=== PATIENT | male | born 1950 | race Caucasian/White ===

== ENCOUNTER → 2020-11-26 12:25 | Outpatient (CLI) | payer MEDICARE, SELFPAY ==
[2020-11-26] MEDS: COVID-19 VACC, Ad26(JANSSEN)/PF 0.5 ML IM (12:32)
== END ==
PROVIDERS: PCP Family Medicine; Visit Provider Internal Medicine
DX: Z23 Encounter for immunization (principal)
CPT/HCPCS: 0031A; 91303

== ENCOUNTER → 2021-03-24 09:22 | Outpatient (CLI) | payer MEDICARE, SELFPAY ==
[2021-03-24 20:01] LABS: Hematocrit 46.1 % (41-53); Hemoglobin 15.1 g/dL (13.5-17.5); Mean Corpuscular HGB Conc 32.7 % (30-36); Mean Corpuscular Hemoglobin 30.8 PG (26-34); Mean Corpuscular Volume 94.3 fL (80-100); Platelet Count 207 X10^3/uL (150-400); Red Blood Cell Count 4.89 X10^6/uL (4.5-5.9); Red Cell Distribution Width 14.2 % (11.6-14.8); White Blood Cell Count 5.9 X10^3/uL (4.5-11.0)
[2021-03-24 20:16] LABS: Alanine Aminotransferase 27 IU/L (<50); Albumin 4.9 g/dL (3.5-5.0); Albumin Globulin Ratio 1.4 (1.0-2.8); Alkaline Phosphatase 67 U/L (38-126); Aspartate Aminotransferase 56 IU/L (17-59); BUN Creatinine Ratio 11.2 (6-22); Bilirubin Total 0.6 mg/dL (0.2-1.3); Blood Urea Nitrogen 10 mg/dL (9-20); Calcium 9.9 mg/dL (8.4-10.2); Carbon Dioxide 29 mmol/L (22-32); Chloride 103 mmol/L (98-107); Cholesterol 239 mg/dL (140-199); Creatine Kinase 219 U/L (55-170); Estimated Glomerular Filt Rate > 60.0 mL/min (>60); Globulin 3.5 g/dL (1.7-4.1); Glucose 93 mg/dL (80-110); HDL Cholesterol 85 mg/dL (40-60); HEMOLYSIS 21 (0-50); LDL Cholesterol Calculated 132 mg/dL (<100); Sodium 143 mmol/L (137-145); Total Protein 8.4 g/dL (6.3-8.2); Triglycerides 111 mg/dL (35-150)
[2021-03-24 20:44] LABS: Thyroid Stimulating Hormone 4.33 uIU/mL (0.47-4.68)
== END ==
PROVIDERS: PCP Family Medicine
DX: E78.5 Hyperlipidemia, unspecified (principal); I10 Essential (primary) hypertension; I48.20 Chronic atrial fibrillation, unspecified
CPT/HCPCS: 80053; 80061; 82550; 84443; 85027

== ENCOUNTER → 2021-08-02 12:36 | Outpatient (CLI) | payer MEDICARE, SELFPAY ==
[2021-08-02 18:34] LABS: Add Manual Diff / Slide Review NO; Basophils Absolute Auto 0 /uL (0-100); Basophils Percent Auto 0.6 % (0-2); Eosinophils Absolute Auto 100 /uL (0-450); Eosinophils Percent Auto 1.2 % (2-4); Hematocrit 41.4 % (41-53); Lymphocytes Absolute Auto 1700 /uL (1100-4500); Lymphocytes Percent Auto 23.6 % (25-40); Mean Corpuscular HGB Conc 33.8 % (30-36); Mean Corpuscular Hemoglobin 31.5 PG (26-34); Mean Corpuscular Volume 93.4 fL (80-100); Monocytes Absolute Auto 700 /uL (0-900); Monocytes Percent Auto 9.2 % (3-14); Neutrophils Absolute Auto 4700 /uL (1500-7000); Neutrophils Percent Auto 65.4 % (50-75); Platelet Count 211 X10^3/uL (150-400); Red Blood Cell Count 4.43 X10^6/uL (4.5-5.9); White Blood Cell Count 7.2 X10^3/uL (4.5-11.0)
[2021-08-02 18:51] LABS: Albumin 4.6 g/dL (3.5-5.0); Creatine Kinase 123 U/L (55-170)
[2021-08-02 19:23] LABS: TSH w/ Reflex to FT4 2.96 uIU/mL (0.47-4.68)
[2021-08-03 03:02] LABS: Alanine Aminotransferase 23 IU/L (<50); Albumin 4.7 g/dL (3.5-5.0); Albumin Globulin Ratio 1.3 (1.0-2.8); Alkaline Phosphatase 60 U/L (38-126); Aspartate Aminotransferase 41 IU/L (17-59); BUN Creatinine Ratio 14.4 (6-22); Bilirubin Total 0.6 mg/dL (0.2-1.3); Blood Urea Nitrogen 14 mg/dL (9-20); Calcium 9.9 mg/dL (8.4-10.2); Carbon Dioxide 28 mmol/L (22-32); Chloride 104 mmol/L (98-107); Estimated Glomerular Filt Rate > 60.0 mL/min (>60); Globulin 3.6 g/dL (1.7-4.1); Glucose 116 mg/dL (80-110); HEMOLYSIS < 15 (0-50); Potassium 4.4 mmol/L (3.4-5.1); Sodium 142 mmol/L (137-145); Total Protein 8.3 g/dL (6.3-8.2)
[2021-08-03 03:32] LABS: Prostate Specific Antigen Scrn 4.07 ng/mL (0.1-4.0)
== END ==
PROVIDERS: PCP Family Medicine; Visit Provider Physician Assistant
DX: Z79.899 Other long term (current) drug therapy (principal); Z12.5 Encounter for screening for malignant neoplasm of prostate; I48.91 Unspecified atrial fibrillation; L29.9 Pruritus, unspecified; R74.8 Abnormal levels of other serum enzymes
CPT/HCPCS: 80053; 82040; 82550; 84443; 85025; G0103

== ENCOUNTER → 2023-07-30 08:54 | Outpatient (CLI) | payer MEDICARE, SELFPAY ==
[2023-07-30 09:48] LABS: Add Manual Diff / Slide Review NO; Basophils Absolute Auto 100 /uL (0-100); Basophils Percent Auto 0.6 % (0-2); Eosinophils Absolute Auto 100 /uL (0-450); Eosinophils Percent Auto 1.7 % (2-4); Hematocrit 40.6 % (41-53); Hemoglobin 13.8 g/dL (13.5-17.5); Lymphocytes Absolute Auto 2600 /uL (1100-4500); Mean Corpuscular HGB Conc 33.9 % (30-36); Mean Corpuscular Hemoglobin 30.1 PG (26-34); Mean Corpuscular Volume 88.6 fL (80-100); Monocytes Absolute Auto 700 /uL (0-900); Monocytes Percent Auto 8.4 % (3-14); Neutrophils Absolute Auto 5000 /uL (1500-7000); Neutrophils Percent Auto 59.3 % (50-75); Platelet Count 201 X10^3/uL (150-400); Red Blood Cell Count 4.58 X10^6/uL (4.5-5.9); Red Cell Distribution Width 13.8 % (11.6-14.8); White Blood Cell Count 8.5 X10^3/uL (4.5-11.0)
[2023-07-30 10:43] LABS: Alanine Aminotransferase 24 IU/L (<50); Albumin 4.5 g/dL (3.5-5.0); Albumin Globulin Ratio 1.3 (1.0-2.8); Alkaline Phosphatase 71 U/L (38-126); Aspartate Aminotransferase 38 IU/L (17-59); Bilirubin Total 0.7 mg/dL (0.2-1.3); Blood Urea Nitrogen 12 mg/dL (9-20); Calcium 9.8 mg/dL (8.4-10.2); Carbon Dioxide 25 mmol/L (22-32); Chloride 105 mmol/L (98-107); Cholesterol 161 mg/dL (140-199); Estimated Glomerular Filt Rate > 60 mL/min (>60); Globulin 3.4 g/dL (1.7-4.1); Glucose 109 mg/dL (80-110); HDL Cholesterol 54 mg/dL (40-60); HEMOLYSIS < 15 (0-50); LDL Cholesterol Calculated 88 mg/dL (<100); Potassium 4.4 mmol/L (3.4-5.1); Sodium 142 mmol/L (137-145); Total Protein 7.9 g/dL (6.3-8.2); Triglycerides 93 mg/dL (35-150)
[2023-07-30 15:46] LABS: Hep C Virus Ab w/Reflex Quant NEGATIVE s/c (NEGATIVE)
== END ==
LOC: LAB 08:56
PROVIDERS: PCP Family Medicine; Referring Provider Family Medicine; Visit Provider Family Medicine
DX: Z00.00 Encounter for general adult medical examination without abnormal findings (principal); I48.91 Unspecified atrial fibrillation; E78.00 Pure hypercholesterolemia, unspecified; Z11.59 Encounter for screening for other viral diseases
CPT/HCPCS: 36415; 80053; 80061; 85025; 86803

== ENCOUNTER 2023-11-06 06:55 | Day surgery (SDC) | payer MEDICARE, SELFPAY ==
[2023-11-06 07:17] VITALS: BP 124/72; PULSE 94; RESP 12; TEMP 36.8; O2SAT 100
[2023-11-06] MEDS: LACTATED RINGERS 1,000 ML 42 ML IV (07:25)
--- NOTE | 2023-11-06 07:45 | P.HP_ITS ---
History of Present Illness History of Present Illness Date Patient Seen: 11/06/23 Time Patient Seen: 07:45 Chief complaint: [facility] – [place] Narrative: 73-year-old man here for screening colonoscopy. No previous colonoscopy. No family history of intestinal malignancy. Occasional blood per rectum which he attributes to hemorrhoids. [facility] Medical History Encounter for subsequent annual wellness visit (AWV) in Medicare patient Social History Smoking Status: Never smoker alcohol intake: never Meds Home Medications and Allergies Home Medications Medication Instructions Recorded Confirmed Type diltiazem HCl 240 mg 240 mg PO DAILY 11/01/20 11/06/23 History capsule,extended release 24 hr loratadine 10 mg tablet (Allergy 10 mg PO DAILY 11/01/20 07/10/23 History Relief (loratadine)) epinephrine 0.3 mg/0.3 mL 0.3 mg (0.3 mL) IM ONCE #1 ea 03/14/21 07/10/23 Rx injection, auto-injector apixaban 5 mg tablet (Eliquis) 5 mg PO BID 08/02/21 11/06/23 History hydroxyzine HCl 25 mg tablet 25 mg PO BEDTIME PRN itching #30 08/02/21 07/10/23 Rx tabs metoprolol succinate 25 mg 12.5 mg PO DAILY 08/02/21 11/06/23 History tablet,extended release 24 hr multivitamin 1 tab PO DAILY 08/02/21 07/10/23 History epinephrine [Primatene Mist] 1 - 2 puff inhalation DAILY 07/18/22 07/10/23 History albuterol sulfate 2.5 mg/3 mL 2.5 mg (3 mL) inhalation Q4-6H PRN 08/08/22 11/06/23 Rx (0.083 %) solution for nebulization bronchospasm #75 mL prednisone 10 mg tablet 10 mg PO .prn #20 tabs 08/09/22 07/10/23 Rx sildenafil 100 mg tablet (Viagra) 50 - 100 mg (0.5 - 1 x 100 mg) PO 07/10/23 07/10/23 Rx DAILY PRN sexual activity #30 tabs albuterol sulfate 90 mcg/actuation See Rx Instructions .Route 10/04/23 Rx aerosol inhaler (Ventolin HFA) .COMPLEX #18 grams sodium,potassium,mag sulfates 17.5 See Rx Instructions PO .COMPLEX 10/19/23 Rx gram-3.13 gram-1.6 gram oral soln #354 mL (Suprep Bowel Prep Kit) Allergies Allergy/AdvReac Type Severity Reaction Status Date / Time grass pollen AdvReac Unknown Verified 11/06/23 07:14 mold AdvReac Unknown Uncoded 11/06/23 07:14 Exam Vital Signs (past 8 hours): - 11/06/23 07:17 Temperature 98.2 F Pulse Rate 94 H Respiratory Rate 12 Blood Pressure 124/72 Pulse Oximetry 100 Oxygen Delivery Method Room Air Oxygen Delivery Method Room Air Narrative Exam Narrative: General adult man alert oriented no acute distress Chest nonlabored respiration Extremities warm well perfused Assessment & Plan Assessment & Plan narrative: The patient requires colorectal screening and colonoscopy is recommended. Technical details were discussed. Risks, benefits, alternatives explained. Risks including but not limited to myocardial infarction, aspiration, bleeding, pain, missed lesion, incomplete examination, need for further radiographic studies, intestinal injury, and need for major abdominal surgery were discussed. All questions were answered to their satisfaction, and they are in agreement with this plan.
[2023-11-06 08:14] VITALS: BP 106/63; PULSE 67; RESP 10; TEMP 36.2; O2SAT 97
--- NOTE | 2023-11-06 08:15 | P.OP.COLON_ITS ---
Operative Date/Time/Diagnoses Date of procedure: 11/06/23 Time of procedure: 08:15 Pre-op diagnosis: Colorectal screening Post-op diagnosis: same Procedure & Clinicians Study performed: Screening colonoscopy Same procedure as scheduled: Yes Indications: Colorectal screening Surgeon: Alf Gonzalez Procedure Notes Procedure in detail: The history and physical was performed/updated and the patient is ASA class is 2. The procedure was discussed in detail with the patient. Potential risks complications including infection, bleeding, missed diagnosis, perforation, need for surgery, and were explained. Their questions were answered and informed consent was obtained. Patient was brought to the procedure room and placed standard monitoring equipment. The patient's vital signs were monitored continuously throughout the entire procedure. Prior to starting time-out was performed. The patient was placed in the left lateral recumbent position. Procedural sedation was administered by anesthesia. Examination began with a thorough inspection of the perianal area there was no evidence of fissures, fistulae, external hemorrhoids or cutaneous malignancy. The colonoscopy scope was then placed into the anal canal and was advanced to the cecum, which was identified by the ileocecal valve, the appendiceal orifice and the confluence of the taenia. The scope was then slowly withdrawn examining colon thoroughly in all directions, irrigating it of any residual stool. The scope was retroflexed within the rectum The patient tolerated the procedure well. They will be discharged once criteria are met. The prep was of fair quality. The withdrawl time was 6 minutes. FINDINGS * No masses or polyps * Diverticulosis of descending colon * Internal hemorrhoids Specimen(s): none sent Impression: Diverticulosis Post-procedure Recommendations: High fiber diet Plan for aftercare: No further colonoscopy necessary unless symptomatic Disposition: same day surgery
[2023-11-06 08:18] VITALS: BP 104/61; PULSE 87; RESP 25; O2SAT 98
[2023-11-06 08:24] VITALS: BP 117/75; PULSE 84; RESP 14; TEMP 36.2; O2SAT 100
[2023-11-06 08:36] VITALS: BP 114/61; PULSE 70; RESP 16; TEMP 36.2; O2SAT 99
== END 2023-11-06 08:44 | disposition home or self-care (01) ==
PROVIDERS: PCP Family Medicine; Referring Provider Surgery; Visit Provider Surgery
PROC: 0DJD8ZZ Inspection of Lower Intestinal Tract, Via Natural or Artificial Opening Endoscopic (ICD-10-PCS; CPT 45378; principal; 2023-11-06 08:00)
DX: Z12.11 Encounter for screening for malignant neoplasm of colon (principal); K57.30 Diverticulosis of large intestine without perforation or abscess without bleeding; K64.8 Other hemorrhoids
CPT/HCPCS: G0121; J2704

== ENCOUNTER → 2024-07-23 09:16 | Outpatient (CLI) | payer MEDICARE, SELFPAY ==
[2024-07-23 10:00] LABS: Alanine Aminotransferase 20 IU/L (<50); Albumin 4.6 g/dL (3.5-5.0); Albumin Globulin Ratio 1.4 (1.0-2.8); Alkaline Phosphatase 75 U/L (38-126); Aspartate Aminotransferase 35 IU/L (17-59); BUN Creatinine Ratio 14.4 (6-22); Bilirubin Total 0.5 mg/dL (0.2-1.3); Blood Urea Nitrogen 13 mg/dL (9-20); Calcium 9.5 mg/dL (8.4-10.2); Carbon Dioxide 25 mmol/L (22-32); Chloride 105 mmol/L (98-107); Cholesterol 154 mg/dL (140-199); Estimated Glomerular Filt Rate > 60 mL/min (>60); Globulin 3.2 g/dL (1.7-4.1); Glucose 101 mg/dL (80-110); HDL Cholesterol 55 mg/dL (40-60); HEMOLYSIS < 15 (0-50); LDL Cholesterol Calculated 76 mg/dL (<100); Potassium 4.4 mmol/L (3.4-5.1); Sodium 140 mmol/L (137-145); Total Protein 7.8 g/dL (6.3-8.2); Triglycerides 117 mg/dL (35-150)
[2024-07-23 10:30] LABS: Prostate Specific Antigen Scrn 7.42 ng/mL (0.1-4.0)
== END ==
PROVIDERS: PCP Family Medicine; Referring Provider Family Medicine; Visit Provider Family Medicine
DX: Z00.00 Encounter for general adult medical examination without abnormal findings (principal); E78.00 Pure hypercholesterolemia, unspecified; Z12.5 Encounter for screening for malignant neoplasm of prostate
CPT/HCPCS: 36415; 80053; 80061; G0103

== ENCOUNTER → 2024-10-29 14:14 | Outpatient (CLI) | payer MEDICARE, SELFPAY ==
[2024-10-29 15:42] LABS: Prostate Specific Antigen 6.37 ng/mL (0.10-4.00)
== END ==
PROVIDERS: PCP Family Medicine; Referring Provider Urology; Visit Provider Urology
DX: R97.20 Elevated prostate specific antigen [PSA] (principal)
CPT/HCPCS: 36415; 84153

== ENCOUNTER → 2024-11-19 10:36 | Outpatient (CLI) | payer MEDICARE, SELFPAY ==
--- NOTE | 2024-11-19 10:37 | DI.MRI.S_ITS ---
PROCEDURE: MR PELVIC PROSTATE PROTOCOL INDICATIONS: 74 y/o M w/ elevated PSA, please eval. TECHNIQUE: Coronal HASTE, axial T1 FSE with fat saturation, 3-plane nonbreath-hold T2 FSE. After the administration of contrast, dynamic axial, delayed axial and coronal VIBE or 2-D FLASH with fat saturation through the pelvis. Diffusion weighted imaging and ADC was performed. COMPARISON: None. FINDINGS: Image quality: Diffusion weighted and dynamic contrast enhanced images are diagnostic. Prostate: Gland size is 4.1 x 2.6 x 3.2 cm; ellipsoid gland volume is 17.7 mL. PSA density: 0.35. Lesion 1: Location: Left lateral peripheral zone, base, on axial series 4, image 10 and coronal series 5, image 18. Size: 1.4 x 0.8 cm. T2W signal: Hypointense. DWI signal: Markedly hyperintense. ADC signal: Markedly hypointense. Enhancement: Yes. Extracapsular extension: No. No neurovascular involvement. PI-RADS score: 4 Lesion 2: Location: Right lateral peripheral zone, mid gland to apex, on axial series 4, image 12 and coronal series 5, image 16. Size: 1.8 x 0.8 cm. T2W signal: Hypointense. DWI signal: Markedly hyperintense. ADC signal: Markedly hypointense. Enhancement: Yes. Extracapsular extension: No. No neurovascular involvement. PI-RADS score: 5 Genitourinary system: Bladder wall thickness is normal. Distal ureters are non distended. Bowel and peritoneum: No pathologic free pelvic fluid. Inferior colon and small bowel loops are normal in caliber. Nodes and vessels: No pelvic or inguinal adenopathy by size criteria. Iliac vessels are normal in caliber. Soft tissues: No inguinal hernias. Bones: Marrow demonstrates normal overall signal, without lesions to suggest metastases. Left total hip arthroplasty. IMPRESSION: PI-RADS 4 and 5 lesions, as above. No evidence of extraprostatic extension. No pelvic lymphadenopathy by size criteria. No aggressive osseous abnormality. Dictated by: Micheal Waldron M.D. on 11/19/2024 at 13:55 Approved by: Micheal Waldron M.D. on 11/19/2024 at 14:01
== END ==
PROVIDERS: PCP Family Medicine; Referring Provider Urology; Visit Provider Urology
DX: N42.9 Disorder of prostate, unspecified (principal); R97.20 Elevated prostate specific antigen [PSA]; Z96.642 Presence of left artificial hip joint
CPT/HCPCS: 72197; A9579